=== PATIENT | female | born 1995 | race Caucasian/White ===

== ENCOUNTER 2018-09-30 22:28 | Emergency (ER) | payer OTHER ==
--- NOTE | 2018-10-01 00:45 | ER Document Report ---
ED Medical Screen (RME) - General Chief Complaint: Numbness Stated Complaint: NUMBNESS, ARMS AND HANDS Time Seen by Provider: 10/01/18 00:17 Notes: 23-year-old female chief complaint of an episode prior to arrival where she felt her hands cramping up, she felt tingling in her hands and arms, she felt tingling around her lips, and she felt like she could not open her hands. She still states her hands are very shaky. She states that she felt a little bit lightheaded. She states this happened right after "messing around" with her . She denies chest pain, palpitations, difficulty breathing, abdominal pain, nausea, vomiting. Denies history of the same. She has Nexplanon, no other medications or medical history reported. TRAVEL OUTSIDE OF THE [place] IN LAST 30 DAYS: No - Related Data Allergies/Adverse Reactions: No Known Allergies Allergy (Verified 09/30/18 22:31) Physical Exam - Vital signs Vitals: Temp Pulse Resp BP Pulse Ox 98.3 F 59 L 20 125/85 100 09/30/18 22:54 09/30/18 22:54 09/30/18 22:54 09/30/18 22:54 09/30/18 22:54 - General General appearance: Other - Patient's hands are shaky - Cardiovascular Rhythm: Regular. No: Tachycardia Heart sounds: Normal auscultation, S1 appreciated, S2 appreciated Course - Re-evaluation Re-evalutation: I have greeted and performed a rapid initial assessment of this patient. A comprehensive ED assessment and evaluation of the patient, analysis of test results and completion of the medical decision making process will be conducted by additional ED providers. - Vital Signs Vital signs: Temp Pulse Resp BP Pulse Ox 98.3 F 59 L 20 125/85 100 09/30/18 22:54 09/30/18 22:54 09/30/18 22:54 09/30/18 22:54 09/30/18 22:54
[2018-10-01 01:10] LABS: ABSOLUTE BASOPHILS # (AUTO) 0.1 10^3/uL (0.0-0.2); ABSOLUTE EOSINOPHILS # (AUTO) 0.2 10^3/uL (0.0-0.6); ABSOLUTE LYMPHOCYTES (AUTO) 2.6 10^3/uL (0.5-4.7); ABSOLUTE MONOCYTES (AUTO) 0.7 10^3/uL (0.1-1.4); ABSOLUTE NEUT (AUTO) 4.9 10^3/uL (1.7-8.2); BASOPHILS % (AUTO) 0.7 % (0-2); HEMATOCRIT 41.2 % (36.0-47.0); LYMPHOCYTES % (AUTO) 31.2 % (13-45); MEAN CORPUSCULAR HEMOGLOBIN 28.9 pg (27.0-33.4); MEAN CORPUSCULAR VOLUME 85 fl (80-97); MONOCYTES % (AUTO) 7.8 % (3-13); PLATELET COUNT 276 10^3/uL (150-450); RED BLOOD COUNT 4.83 10^6/uL (3.72-5.28); RED CELL DISTRIBUTION WIDTH 13.6 % (11.5-14.0); SEGMENTED NEUTROPHILS % (AUTO) 58.3 % (42-78); TOTAL CELLS COUNTED % (AUTO) 100 %; WHITE BLOOD COUNT 8.5 10^3/uL (4.0-10.5)
[2018-10-01 01:26] LABS: ANION GAP 9 (5-19); BLOOD UREA NITROGEN 16 mg/dL (7-20); CALCIUM 10.2 mg/dL (8.4-10.2); CARBON DIOXIDE 25 mmol/L (22-30); CHLORIDE 106 mmol/L (98-107); GLUCOSE 94 mg/dL (75-110); POTASSIUM 3.8 mmol/L (3.6-5.0); SODIUM 139.9 mmol/L (137-145)
--- NOTE | 2018-10-01 02:06 | RADIOLOGY REPORT (SQ) ---
EXAM DESCRIPTION: [facility]: CT HEAD WITHOUT IV CONTRAST CLINICAL HISTORY: 23 years Female; upper extremity numbness TECHNIQUE: Noncontrast CT head. All CT scans at this facility use dose modulation, iterative reconstruction, and/or weight based dosing when appropriate to reduce radiation dose to as low as reasonably achievable. COMPARISON: None. FINDINGS: Brewer matter, white matter, ventricles, and cisterns are within normal limits. No acute hemorrhage or mass effect. Visualized portions of paranasal sinuses and mastoids are clear. Visualized portions of the calvarium are within normal limits. IMPRESSION: 1. Normal noncontrast CT of the brain
--- NOTE | 2018-10-01 02:17 | ER Document Report ---
ED General - General Chief Complaint: Numbness Stated Complaint: NUMBNESS, ARMS AND HANDS Time Seen by Provider: 10/01/18 00:17 Notes: Patient is a 23-year-old female who presents with complaint of onset of weakness and numbness going into the hands and arms during sex. She then progressed to having cramping of her hands where her fingers were called in she cannot straighten out her fingers. Symptoms lasted 15-20 minutes. She never had a headache. No vomiting. No fevers. Patient never had these symptoms before. Patient's symptoms have now completely resolved and she feels improved. TRAVEL OUTSIDE OF THE [place] IN LAST 30 DAYS: No - Related Data Allergies/Adverse Reactions: No Known Allergies Allergy (Verified 09/30/18 22:31) Past Medical History - Social History Smoking Status: Never Smoker Frequency of alcohol use: None Drug Abuse: None Family History: Reviewed & Not Pertinent Review of Systems - Review of Systems Notes: My Normal Review Basic REVIEW OF SYSTEMS: CONSTITUTIONAL : Denies fever, chills, or sweats. Denies recent illness. CARDIOVASCULAR: Denies chest pain. RESPIRATORY: Denies cough, cold, or chest congestion. Denies shortness of breath, difficulty breathing, or wheezing. GASTROINTESTINAL: Denies abdominal pain. Denies nausea, vomiting, or diarrhea. SKIN: Denies rash or skin lesions. HEMATOLOGIC : Denies easy bruising or bleeding. LYMPHATIC: Denies swollen, enlarged glands. NEUROLOGICAL: Episode of weakness and numbness into the upper extremities followed by flexion of the fingers with ability to straighten out fingers. PSYCHIATRIC: Denies anxiety or stress or depression. ALL OTHER SYSTEMS REVIEWED AND NEGATIVE. Physical Exam - Vital signs Vitals: Temp Pulse Resp BP Pulse Ox 98.3 F 59 L 20 125/85 100 09/30/18 22:54 09/30/18 22:54 09/30/18 22:54 09/30/18 22:54 09/30/18 22:54 - Notes Notes: General Appearance: Well nourished, alert, cooperative, no acute distress, no obvious discomfort. Vitals: reviewed, See vital signs table. Head: no swelling or tenderness to the head Eyes: PERRL, EOMI, Conjuctiva clear Mouth: No decreasd moisture Lungs: No wheezing, No rales, No rhonci, No accessory muscle use, good air exchange bilaterally. Heart: Normal rate, Regular rythm, No murmur, no rub Extremities: strength 5/5 in all extremities, good pulses in all extremities, no swelling or tenderness in the extremities, no edema. Skin: warm, dry, appropriate color, no rash Neuro: speech clear, oriented x 3, normal affect, responds appropriately to questions. Cranial nerves II through XII are intact. Distal sensation intact. Patient moves all extremities without difficulty. Normal Romberg. Normal gait. Course - Re-evaluation Re-evalutation: 10/01/18 02:[address] scan was obtained because she had ongoing symptoms for 20 minutes. If her symptoms are very short after sex and I would attribute to her having orgasm and sometimes this can cause paresthesia type symptoms; however, her symptoms were ongoing for [address] scan was obtained approximately 3 hours after onset of symptoms is negative. That conjunction with the fact that she did have a headache makes it highly likely that she had a subarachnoid hemorrhage or bleeding. Clinically she looks very well and has no symptoms at this time. I suspect is a possibility that she could have had the paresthesias from a possible orgasm and then had a panic attack which a lot of times will cause the carpal pedal spasm like she was experiencing. I informed her to return to ER immediately if she ever develops severe headache, recurrence of numbness lasting more than 15 minutes, or if she has any further concerns. Patient agrees with plan will be discharged home. Dictation of this chart was performed using voice recognition software; therefore, there may be some unintended grammatical errors. - Vital Signs Vital signs: Temp Pulse Resp BP Pulse Ox 98.3 F 59 L 20 125/85 100 09/30/18 22:54 09/30/18 22:54 09/30/18 22:54 09/30/18 22:54 09/30/18 22:54 - Laboratory Result Diagrams: 10/01/18 00:58 10/01/18 00:58 Discharge - Discharge Clinical Impression: Paresthesia and pain of both upper extremities Condition: Good Disposition: HOME, SELF-CARE Additional Instructions: CT scan of your head did not show any concerning findings. Blood work is unremarkable. Please have a low threshold to return to ER if you develop severe headache during sex, recurrent weakness or numbness is not resolving within 15 minutes, or if you have any further concerns.
[2018-10-01 02:44] VITALS: BP 105/71
== END 2018-10-01 02:45 | disposition home or self-care (01) ==
LOC: ER 22:28
DX: R53.1 Weakness (principal); R20.0 Anesthesia of skin; R25.2 Cramp and spasm
CPT/HCPCS: 36415; 70450; 80048; 84703; 85025; 99284